=== PATIENT | female | born 1965 | race Caucasian/White ===

== ENCOUNTER 2016-12-11 09:19 | Day surgery (SDC) | payer BC, MEDICAID ==
[~2016-12-11] VITALS: Ht 157.5 cm; Wt 64.7 kg
[2016-12-11 10:00] VITALS: Ht 157.5 cm; Wt 64.7 kg
[2016-12-11] MEDS ORDERED: ATORVASTATIN (10:21)
[2016-12-11] MEDS ORDERED: METFORMIN (10:21)
[2016-12-11] MEDS ORDERED: ATENOLOL (10:21)
[2016-12-11] MEDS ORDERED: LIDOCAINE 4% SOLUTION 50 ML BTL ONE (11:24)
--- NOTE | 2016-12-11 12:07 | OPPN ---
Date/Time of Note Date/Time of Note DATE: 12/11/16 TIME: 12:04 Proc Note GI Procedure Date 12/11/16 Pre-procedure Diagnosis abd pain screening colonoscopy Post-procedure Diagnosis gerd gastritis hyemorrhopids Procedure Performed: Endoscopy, Colonoscopy Surgeon see signature line Import/Export Specialist none Anesthesia Type: moderate sedation Anesthesiologist: DAMON MONK Tourniquet Time none EBL none Transfusion required none Biopsy 1: gastric and vesophagus Grafts/Implants none Tubes/Drains none Complication(s) none Pt Condition post procedure: stable Disposition: home Indications: screening/surveillance, reflux Sx despite therapy Operative\Procedure Findings gerd gastritis hemorrhoids Procedure Description gerd gastritis hemorrhoids ANDREZ LIZARRAGA MD Dec 11, 2016 12:07
--- NOTE | 2016-12-11 12:30 | GILP ---
DATE OF PROCEDURE: 12/11/2016 SURGEON: Joseluis Byrd MD PREOPERATIVE DIAGNOSIS: Screening colonoscopy. Rule out colon polyps. POSTOPERATIVE DIAGNOSIS: Minimal internal, minimal external hemorrhoids. DESCRIPTION OF PROCEDURE: After informed written consent is obtained. Patient was asked to lie on the left lateral side. The patient was given Versed and fentanyl as intravenous anesthesia. When the patient became somnolent, the Olympus video colonoscope was introduced into the rectum. Scope was advanced all the way to the cecum. Entire colon appeared perfectly normal with no mucosal abnormality. On the way out further evaluation was carried out. No additional abnormalities detected and the procedure was terminated. Except minimal hemorrhoids were noted. PLAN: Recommend a repeat colonoscopy in 10 years. Dictated By: Joseluis Byrd MD /art/[email or web address] /Document#: [id number] CC: Joseluis Byrd MD;*EndCC*
[2016-12-11] MEDS ORDERED: MIDAZOLAM 1 MG/ML 2 ML INJ ONE ×2 (12:33)
[2016-12-11] MEDS ORDERED: FENTAnyl 50 MCG/ML VIAL ONE (12:33)
--- NOTE | 2016-12-12 09:40 | GILP ---
DATE OF PROCEDURE: 12/11/2016 PROCEDURE PERFORMED: Esophagogastroduodenoscopy. PREOPERATIVE DIAGNOSIS: The patient presenting with history of . Rule out peptic ulcer disease and gastroesophageal reflux disease. POSTOP DIAGNOSIS: 1. Mild diffuse esophagitis. 2. Multiple antral erosions. DESCRIPTION OF PROCEDURE: After the informed written consent was obtained, the patient was asked to lay in the left lateral side. The patient was given 2 mg Versed and 50 mcg of fentanyl as intravenous anesthesia. When the patient became somnolent, Olympus video upper endoscope was introduced into the oropharynx, then into the esophagus. Entire esophagus showed evidence of several areas of erythema. Biopsies were obtained to rule out esophagitis. The scope at this time was advanced into the stomach. Multiple erosions were noted in the antrum. The rest of the stomach appeared normal. Biopsy was done from the antrum, the lesser curvature, and the fundus to rule out H. pylori infection. The mucosa of the duodenum appeared normal up to the end of the third portion. The scope at this time was withdrawn, and on the way out, no additional abnormalities were detected and the procedure was terminated. PLAN: Recommend proton pump inhibitor therapy. Wait for the pathology report. Dictated By: Joseluis Byrd MD /art/[email or web address] /Document#: [id number] ; Kiah Rao
== END 2016-12-11 13:38 | disposition home or self-care (01) ==
LOC: GIL 09:19
PROVIDERS: ATTEND Internal Medicine Gastroenterology
DX: Z12.11 Encounter for screening for malignant neoplasm of colon (principal); K64.8 Other hemorrhoids; K64.4 Residual hemorrhoidal skin tags; K29.50 Unspecified chronic gastritis without bleeding; K20.9 Esophagitis, unspecified
CPT/HCPCS: 43239; 45378; 82962; 88305; 88312; J2250; J3010; Z7610